=== PATIENT | male | born 1955 | race American Indian/Alaskan Native ===

== ENCOUNTER 2018-03-20 18:39 | Emergency (ER) | payer MEDICAID ==
[2018-03-20 21:08] VITALS: BMI 21.4
== END 2018-03-20 19:44 | disposition left against medical advice (07) ==
LOC: ED 18:39
DX: Z02.89 Encounter for other administrative examinations (principal); M79.642 Pain in left hand

== ENCOUNTER 2018-03-20 20:47 | Emergency (ER) | payer MEDICAID ==
[2018-03-20 21:08] VITALS: BMI 21.4
--- NOTE | 2018-03-20 22:32 | ED PDOC ---
Arrival/HPI - General Chief Complaint: Finger,Hand,&Wrist Time Seen by Provider: 03/20/18 21:00 - History of Present Illness Narrative History of Present Illness (Text): 62 y/o male with PMH of HTN presents to the ED c/o left thumb pain x 2 days. Pain is sharp, worse with movement. Pt states his left thumb MCP joint is "loose". Patient works in construction. Denies trauma/injury, numbness, paresthesias, abrasions, lacerations, or any other complaints. Past Medical History - Provider Review Nursing Documentation Reviewed: Yes - Cardiac Hx Hypertension: Yes - Psychiatric Hx Substance Use: No - Anesthesia Hx Anesthesia: No Family/Social History - Physician Review Nursing Documentation Reviewed: Yes Family/Social History: No Known Family HX Smoking Status: Never Smoked Hx Alcohol Use: No Hx Substance Use: No Allergies/Home Meds Allergies/Adverse Reactions: Allergies strawberry Allergy (Verified 03/20/18 21:03) RASH Review of Systems - Physician Review All systems were reviewed & negative as marked: Yes - Review of Systems Constitutional: Normal Eyes: Normal. absent: Vision Changes ENT: Normal Respiratory: Normal. absent: SOB, Cough Cardiovascular: Normal. absent: Chest Pain, Palpitations Gastrointestinal: Normal. absent: Abdominal Pain, Nausea, Vomiting Genitourinary Male: Normal Musculoskeletal: Arthralgias (left thumb pain) Skin: Normal. absent: Rash Neurological: Normal. absent: Headache, Dizziness Endocrine: Normal Hemo/Lymphatic: Normal Psychiatric: Normal Physical Exam Vital Signs Reviewed: Yes Temperature: Afebrile Blood Pressure: Normal Pulse: Regular Respiratory Rate: Normal Appearance: Positive for: Well-Appearing, Non-Toxic, Comfortable Pain Distress: None Mental Status: Positive for: Alert and Oriented X 3 - Systems Exam Head: Present: Atraumatic, Normocephalic Pupils: Present: PERRL Extroacular Muscles: Present: EOMI Conjunctiva: Present: Normal Mouth: Present: Moist Mucous Membranes Neck: Present: Normal Range of Motion Respiratory/Chest: Present: Clear to Auscultation, Good Air Exchange. No: Respiratory Distress, Accessory Muscle Use Cardiovascular: Present: Regular Rate and Rhythm, Normal S1, S2, Peripheal Pulses Present. No: Murmurs Upper Extremity: Present: Normal Inspection, Normal ROM (Strength 5/5 bilaterally), NORMAL PULSES, Tenderness (left thenar eminence ), Neurovascularly Intact, Capillary Refill < 2s. No: Cyanosis, Edema, Swelling, Erythema, Deformity Lower Extremity: Present: Normal ROM, Neurovascularly Intact Neurological: Present: GCS=15, CN II-XII Intact, Speech Normal, Motor Func Grossly Intact, Normal Sensory Function, Gait Normal Skin: Present: Warm, Dry, Normal Color. No: Rashes Psychiatric: Present: Alert, Oriented x 3, Normal Insight, Normal Concentration Medical Decision Making ED Course and Treatment: Initial Plan * Left Hand Xray * Tylenol * Reassess and Disposition Left Hand XR: chronic changes, no acute fracture or dislocation. Patient given thumb spica brace, prescription for naproxen, and recommendation to followup with the hand specialist. Plan of care discussed with patient, and strict instructions given regarding prescriptions, importance of follow up, and signs to return to Emergency Department, to include worsening pain, numbness, paresthesias, or any other new/worsening symptoms. Patient verbalizes understanding of discussion. Patient A&Ox3, ambulating with steady gait, stable for discharge home. - RAD Interpretation Radiology Orders: 03/20/18 21:37 HAND LEFT THUMB [RAD] Stat - Medication Orders Current Medication Orders: Discontinued Medications Acetaminophen (Tylenol 325mg Tab) 650 mg PO STAT STA Stop: 03/20/18 21:44 Last Admin: 03/20/18 21:53 Dose: 650 mg Disposition/Present on Arrival - Present on Arrival Any Indicators Present on Arrival: No History of DVT/PE: No History of Uncontrolled Diabetes: No Urinary Catheter: No History of Decub. Ulcer: No History Surgical Site Infection Following: None - Disposition Have Diagnosis and Disposition been Completed?: Yes Diagnosis: Thumb pain Disposition: HOME/ ROUTINE Disposition Time: 22:23 Patient Plan: Discharge Condition: STABLE Discharge Instructions (ExitCare): Muscle and Bone Pain (DC) Additional Instructions: Naproxen for pain daily as needed Keep splint on until followup Followup with hand doctor or orthopedic clinic within 2 days Followup with primary doctor within 2 days Return to ER for new/worsening symptoms Prescriptions: Naproxen [Naprosyn] 500 mg PO DAILY PRN #14 tablet PRN Reason: Pain, Moderate (4-7) Referrals: Dorothea Beckham MD [Staff Provider] - Follow up with primary [facility] [place] [Outside] - Follow up with primary Forms: [employer] (Amharic), WORK NOTE
[2018-03-20 23:10] VITALS: BP 122/80; PULSE 80; RESP 18; TEMP 98.4
[2018-03-20 23:11] VITALS: O2SAT 99
--- NOTE | 2018-03-21 14:33 | RAD ---
PROCEDURE: Left Hand Radiographs. HISTORY: thumb pain COMPARISON: None. FINDINGS: BONES: Normal. No fracture. JOINTS: Degenerative changes are seen in the 1st MCP joint. No acute findings SOFT TISSUES: Normal. OTHER FINDINGS: None. IMPRESSION: Degenerative changes are seen in the 1st MCP joint. No acute findings
== END 2018-03-20 23:10 | disposition home or self-care (01) ==
LOC: ED 20:47
DX: M79.645 Pain in left finger(s) (principal); I10 Essential (primary) hypertension